=== PATIENT | female | born 1995 | race African-American/Black ===

== ENCOUNTER 2018-10-10 11:19 | Emergency (ER) | payer SELFPAY ==
--- OUTSIDE RECORDS SUMMARY | 2018-10-10 11:21 | XMS REPORT ---
:1995 [facility] [address] [place] [address] Dr. Trent [address] [place] [id number] Care Team Providers Name Role Phone Unavailable Unavailable Unavailable Problems This patient has no known problems. Allergies, Adverse Reactions, Alerts This patient has no known allergies or adverse reactions. Medications This patient has no known medications.
--- NOTE | 2018-10-10 11:58 | EDPHYS ---
Physician Documentation [facility] Name: Paul Marion Age: 23 yrs Sex: Female : 1995 Arrival Date: 10/10/2018 Time: 11:22 Bed 6 Private MD: ED Physician Michael Grullon HPI: 10/10 11:44 This 23 yrs old Black Female presents to ER via Ambulatory with complaints of Vaginal jmm Itching, Vaginal Pain. 11:44 The patient presents with urinary symptoms, vaginal discharge. Onset: The jmm symptoms/episode began/occurred gradually, 1 week(s) ago. Associated signs and symptoms: Pertinent positives: vaginal discharge. This is a 23 year old female with a history of htn that presents to the ED with complaints of vaginal itching and burning urination for the past week with discharge beginning today. Denies pelvic or abdominal pain. States the discharge is white and curd like. Denies fever. 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 - Social history:: Smoking status: Patient/guardian denies using tobacco. - Ebola Screening: : Patient denies travel to an Ebola-affected area in the 21 days before illness onset. ROS: 11:44 Constitutional: Negative for fever, chills, and weight loss, Cardiovascular: Negative jmm for chest pain, palpitations, and edema, Respiratory: Negative for shortness of breath, cough, wheezing, and pleuritic chest pain. 11:44 : Positive for urinary symptoms, vaginal discharge, vaginal itching, Negative for 11:44 All other systems are negative. Exam: 11:44 Constitutional: This is a well developed, well nourished patient who is awake, alert, jmm and in no acute distress. Head/Face: atraumatic. Eyes: EOMI, no conjunctival erythema appreciated ENT: Moist Mucus Membranes Neck: Trachea midline, Supple Chest/axilla: Normal chest wall appearance and motion. Cardiovascular: Regular rate and rhythm. No edema appreciated Respiratory: Normal respirations, no respiratory distress appreciated 11:44 Abdomen/GI: Inspection: abdomen appears normal, Palpation: abdomen is soft and non-tender, in all quadrants. 11:44 Back: CVA tenderness, is absent. 11:44 Musculoskeletal/extremity: ROM: intact in all extremities. 11:44 Skin: Appearance: Color: normal in color. 11:44 Neuro: Orientation: is normal, Mentation: is normal, Memory: is normal, Gait: is steady. 11:44 Psych: Behavior/mood is pleasant, cooperative. Vital Signs: 11:25 BP 146 / 87; Pulse 109; Resp 20; Temp 97.6; Pulse Ox 98% on R/A; Weight 116.12 kg (R); aj1 Height 5 ft. 7 in. (170.18 cm) (R); Pain 3/10; 11:25 Body Mass Index 40.09 (116.12 kg, 170.18 cm) aj1 MDM: 11:44 Patient medically screened. ana laura 11:53 Differential diagnosis: rachid infection, urinary tract infection, vaginosis. Data oma reviewed: vital signs, nurses notes, lab test result(s). Data interpreted: Pulse oximetry: on room air is 98 %. Counseling: I had a detailed discussion with the patient and/or guardian regarding: the historical points, exam findings, and any diagnostic results supporting the discharge/admit diagnosis, lab results, the need for outpatient follow up, to return to the emergency department if symptoms worsen or persist or if there are any questions or concerns that arise at home. ED course: Patient has no pelvic pain, abdomen is soft. I do not suspect PID. patient advised to return to the ED if symptoms worsen. . 10/10 11:45 Order name: Urine Microscopic Only [facility] 10/10 11:51 Order name: Urine Dipstick--Ancillary (enter results) ms 10/10 11:45 Order name: Urine Dipstick-Ancillary (obtain specimen); Complete Time: 11:51 [facility] 10/10 11:51 Order name: Urine --Ancillary (enter results) ms Administered Medications: 12:25 Drug: DiFLUcan 150 mg Route: PO; sg Disposition: 13:33 Co-signature as Attending Physician, Michael Grullon MD. rn Disposition: 10/10/18 11:57 Discharged to Home. Impression: Vaginitis, vulvitis and vulvovaginitis in diseases classified elsewhere, Urinary tract infection, site not specified. - Condition is Stable. - Discharge Instructions: Urinary Tract Infection, Adult, Vaginitis. - Prescriptions for Bactrim DS 800- 160 mg Oral Tablet - take 1 tablet by ORAL route every 12 hours for 3 days; 6 tablet. - Work release form, Medication Reconciliation Form, Thank You Letter, Antibiotic Education, Prescription Opioid Use form. - Follow up: Private Physician; When: 2 - 3 days; Reason: Recheck today's complaints, Continuance of care, Re-evaluation by your physician. Signatures: Dispatcher [employer] EDMS Esthela Salomon RN RN aj1 Lio Hooker RN RN Lewis Turpin PA PA jmm Nieto, Roman, MD MD rn Baxter, Heather, RN RN hb Corrections: (The following items were deleted from the chart) 12:33 11:57 10/10/2018 11:57 Discharged to Home. Impression: Vaginitis, vulvitis and hb vulvovaginitis in diseases classified elsewhere; Urinary tract infection, site not specified. Condition is Stable. Forms are Medication Reconciliation Form, Thank You Letter, Antibiotic Education, Prescription Opioid Use. Follow up: Private Physician; When: 2 - 3 days; Reason: Recheck today's complaints, Continuance of care, Re-evaluation by your physician. ana laura
--- NOTE | 2018-10-10 11:58 | ER ---
Nurse's Notes [facility] Name: Paul Marion Age: 23 yrs Sex: Female : 1995 Arrival Date: 10/10/2018 Time: 11:22 Bed 6 Private MD: Diagnosis: Vaginitis, vulvitis and vulvovaginitis in diseases classified elsewhere;Urinary tract infection, site not specified Presentation: 10/10 11:22 Presenting complaint: Patient states: "I think I have a yeast infection. There's aj1 discharge and it itches and it waite and its really uncomfortable" Reports that she has been having these symptoms for a week now. Transition of care: patient was not received from another setting of care. Onset of symptoms was October 03, 2018. Risk Assessment: Do you want to hurt yourself or someone else? Patient reports no desire to harm self or others. Initial Sepsis Screen: Does the patient meet any 2 criteria? No. Patient's initial sepsis screen is negative. Does the patient have a suspected source of infection? No. Patient's initial sepsis screen is negative. Care prior to arrival: None. 11:22 Method Of Arrival: Ambulatory aj1 11:22 Acuity: JANAE 4 aj1 Triage Assessment: 11:25 General: Appears in no apparent distress. uncomfortable, Behavior is calm, cooperative, aj1 appropriate for age. Pain: Complains of pain in pelvis Pain currently is 3 out of 10 on a pain scale. Quality of pain is described as throbbing. Neuro: Level of Consciousness is awake, alert, obeys commands. Cardiovascular: Patient's skin is warm and dry. Respiratory: Airway is patent Respiratory effort is even, unlabored, Respiratory pattern is regular, symmetrical. : Parent/caregiver report the patient having discharge whitegetachew. 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 - Social history:: Smoking status: Patient/guardian denies using tobacco. - Ebola Screening: : Patient denies travel to an Ebola-affected area in the days before illness onset. Vital Signs: 11:25 BP 146 / 87; Pulse 109; Resp 20; Temp 97.6; Pulse Ox 98% on R/A; Weight 116.12 kg (R); aj1 Height 5 ft. 7 in. (170.18 cm) (R); Pain 3/10; 11:25 Body Mass Index 40.09 (116.12 kg, 170.18 cm) [facility] ED Course: 11:22 Patient arrived in ED. mr 11:25 Triage completed. aj1 11:25 Arm band placed on Patient placed in an exam room. [facility] 11:29 Lewis Carpenter PA is PHCP. [facility] 11:30 Michael Grullon MD is Attending Physician. [facility] 12:28 Lio Hooker, RN is Primary Nurse. Administered Medications: 12:25 Drug: DiFLUcan 150 mg Route: PO; sg Outcome: 11:57 Discharge ordered by MD. [facility] 12:33 Patient left the ED. hb Signatures: Esthela Salomon RN RN [facility] Lio Hooker, Lewis Chapin RN, PA PA [facility] Shaneka Post mr Yelena Brooks RN RN hb
[2018-10-10] MEDS ORDERED: FLUCONAZOLE 100 MG TAB ONE (12:28)
[2018-10-10 12:30] LABS: Urine Blood 1+ (NEG); Urine Glucose NEGATIVE (NEG); Urine Protein TRACE (NEG); Urine pH 5.5 (5.0-7.0)
[2018-10-10 12:41] LABS: Urine Bacteria <20 /HPF (<20); Urine Culture Reflex Order REFLEXED; Urine Mucus LIGHT /HPF (NONE SEEN)
== END 2018-10-10 12:33 | disposition home or self-care (01) ==
LOC: ER 11:19
DX: N76.0 Acute vaginitis (principal); N39.0 Urinary tract infection, site not specified; I10 Essential (primary) hypertension
CPT/HCPCS: 81003; 81015; 81025; 87086; 87088; 99282